=== PATIENT | male | born 1990 | race Caucasian/White ===

== ENCOUNTER 2017-01-11 19:28 | Emergency (ER) | payer BC ==
--- NOTE | 2017-01-11 19:37 | EDM.PDOC ---
ED HPI GENERAL MEDICAL PROBLEM - General Chief Complaint: Upper Extremity Injury/Pain Stated Complaint: LEFT SHOULDER ISSUES Time Seen by Provider: 01/11/17 19:37 Source of Information: Reports: Patient History Limitations: Reports: No Limitations - History of Present Illness INITIAL COMMENTS - FREE TEXT/NARRATIVE: 26-year-old male attends the ED with left shoulder pain. Pain occurred while doing heavy bench presses at the gym a week ago. Patient states that since that time pain is increased and limited mobility of his left shoulder has occurred. Particular forward extension or lateral extension of the shoulder. Deep aching pain sharp and stabbing with certain positions. Patient did feel a pop while he was bench pressing. Onset: Gradual Onset Date: 01/04/17 Duration: Day(s): (Over a week ago.) Location: Reports: Chest (Left upper anterior chest and left anterior shoulder.) , Upper Extremity, Left (Left anterior shoulder) Quality: Reports: Ache, Burning, Stabbing, Throbbing Severity: Moderate Improves with: Reports: Rest Worsens with: Reports: Movement (Certain movements make it worse.) Context: Reports: Activity, Exercise (Bench pressing weights at the time of injury.). Denies: Lifting, Sick Contact Associated Symptoms: Reports: No Other Symptoms Treatments MANAGER MUSIC: Reports: NSAIDS Left Shoulder Pain Score (Numeric/FACES): 8 - Related Data Allergies Allergy/AdvReac Type Severity Reaction Status Date / Time morphine Allergy Chest Pain Uncoded 01/11/17 19:44 Home Meds: Home Meds Acetaminophen/HYDROcodone [Piru 325-5 MG] 1 tab PO ASDIRECTED 01/11/17 [History ] Diclofenac Sodium [Voltaren] 50 mg PO BIDMEALS #24 tab.ec 01/11/17 [Rx] Lansoprazole [Prevacid] 30 mg PO DAILY 01/11/17 [History] Past Medical History Gastrointestinal History: Reports: GERD Musculoskeletal History: Reports: Other (See Below) (Chronic problems with his hip. Apparently there is some) Social & Family History - Living Situation & Occupation Occupation: Employed Review of Systems - Review of Systems Review Of Systems: See Below Constitutional: Reports: No Symptoms Eyes: Reports: No Symptoms Ears: Reports: No Symptoms Nose: Reports: No Symptoms Mouth/Throat: Reports: No Symptoms Respiratory: Reports: No Symptoms Cardiovascular: Reports: No Symptoms GI/Abdominal: Reports: No Symptoms Genitourinary: Reports: No Symptoms Musculoskeletal: Reports: Shoulder Pain (See history of present illness left shoulder pain), Other Skin: Reports: No Symptoms (Intermittent problems with left hip pain) Neurological: Reports: No Symptoms Psychiatric: Reports: No Symptoms ED EXAM, GENERAL - Physical Exam Exam: See Below Exam Limited By: No Limitations General Appearance: Alert, WD/WN, No Apparent Distress Eye Exam: Bilateral Eye: Normal Inspection Respiratory/Chest: No Respiratory Distress, Lungs Clear, Normal Breath Sounds, No Accessory Muscle Use, Other (Exhibits tenderness on palpation of the coracoid process and the undersurface of the clavicle along the middle and lateral aspects of the clavicle. The pectoralis major inserts.) Cardiovascular: Normal Peripheral Pulses, Regular Rate, Rhythm, No Edema, No Gallop, No Murmur Peripheral Pulses: 2+: Brachial (L), Brachial (R), Posterior Tibial (L), Posterior Tibial (R), Dorsalis Pedis (L), Dorsalis Pedis (R) Extremities: Other (No evidence of rotator cuff tear. No evidence of anterior subluxation of the joint.) Course - Vital Signs Last Recorded V/S: Last Vital Signs Temp 36.8 C 01/11/17 19:37 Pulse 78 01/11/17 19:37 Resp 20 01/11/17 19:37 BP 134/81 01/11/17 19:37 Pulse Ox 98 01/11/17 19:37 - Orders/Labs/Meds Orders: Active Orders 24 hr Category Date Time Status Shoulder Comp Lt [CR] Stat Exams 01/11/17 19:44 Ordered - Radiology Interpretation Free Text/Narrative:: 26-year-old male attends the ED with a injury to his left upper anterior shoulder and chest occurred while bench pressing weights about a week ago. Pain is getting worse instead of better and limited range of motion of his left arm particularly at the shoulder joint. He has marked difficulty forward extending and lateral extending the arm. It is in the anterior shoulder area and anterior upper chest. Examination shows mild pain and tenderness over the coracoid process but most of the pain is along the inferior aspect of the clavicle and anterior shoulder joint. Possible SLAP syndrome. I think most of this however is muscle strain at where the pectoralis major inserts into the clavicle. X-ray of the shoulder will be obtained. - Re-Assessments/Exams Free Text/Narrative Re-Assessment/Exam: 01/11/17 20:08 x-ray of the left shoulder is normal. Again most this pain is along the undersurface of the clavicle up into the lateral portion of the clavicle. Again I believe primarily injury is to the pectoralis major word inserts along the inferior to the clavicle and possibly part of the anterior aspect of the deltoid insertion site. Rate these injuries have to heal over time. I will place him on Voltaren 50 mg twice daily for the next 12 days in hopes of helping to heal the process up by reducing inflammation and pain. Departure - Departure Time of Disposition: 20:09 Disposition: Home, Self-Care 01 Condition: Fair Clinical Impression: Muscle strain of left shoulder region Qualifiers: Encounter type: initial encounter Qualified Code(s): S46.912A - Strain of unspecified muscle, fascia and tendon at shoulder and upper arm level, left arm , initial encounter - Discharge Information Prescriptions: Diclofenac Sodium [Voltaren] 50 mg PO BIDMEALS #24 tab.ec Forms: ED Department Discharge Additional Instructions: Evaluation in the emergency department tonight in regards to injury to the left anterior shoulder. Injuries occurred during weight lifting over a week ago. Limited mobility in terms of forward flexion and lateral flexion at the shoulder joint. Pain identified to be underneath the inferior surface of the collarbone all along to the anterior aspect of the shoulder The anterior aspect of the deltoid musculature may well have been partially torn as well. Pectoralis major muscle of your anterior chest inserts along the inferior aspect of the collarbone and has been partially torn as well. These are injuries not uncommon to weightlifting. Centrally will heal over time leg over 4 -6 weeks. Return to gentle activities when tolerated with no pain. Suggest use of Voltaren 50 mg twice daily for the next 12 days to help alleviate inflammation and pain in this area and help the healing process. Essentially you have to baby this area for a while until it can tolerate lifting weights particular the bench pressing or flys again. Also any lifting as far as stressing the shoulder joint the deltoid may be impossible for a period of time expect marked improvement over the next 14-21 days. If not , you should be reviewed - My Orders Last 24 Hours: My Active Orders 01/11/17 19:44 Shoulder Comp Lt [CR] Stat - Assessment/Plan Last 24 Hours: My Active Orders 01/11/17 19:44 Shoulder Comp Lt [CR] Stat
[2017-01-11 19:38] VITALS: BP 134/81
--- NOTE | 2017-01-14 15:08 | CR ---
Left shoulder: 3 views of the left shoulder were obtained. Comparison: No previous shoulder study. Small bone island is incidentally noted within the humeral head. Glenohumeral joint and acromioclavicular joint is within normal limits. No fracture, dislocation or other bony abnormality is seen. Impression: 1. No acute bony abnormality is identified. Diagnostic code #2
== END 2017-01-11 20:26 | disposition home or self-care (01) ==
LOC: JD.ED 19:28 → MERGE 19:28 → JD.ED 20:26
DX: S46.912A Strain of unspecified muscle, fascia and tendon at shoulder and upper arm level, left arm, initial encounter (principal); K21.9 Gastro-esophageal reflux disease without esophagitis; Z79.899 Other long term (current) drug therapy; Z88.5 Allergy status to narcotic agent; Y93.B9 Activity, other involving muscle strengthening exercises
CPT/HCPCS: 73030-26-LT; 73030-LT; 99283